=== PATIENT | male | born 1985 | race African-American/Black ===

== ENCOUNTER → 2020-11-09 | Emergency (ER) | payer OTHER ==
[~2020-11-09] VITALS: Ht 182.9 cm; Wt 86.2 kg
[~2020-11-09] MED LIST: ACETAMINOPHEN-1 EAC1 ORAL; ANUSOL-HC30 GM RC; BACTRIM-DS1 EA ORAL; CEPHALEXIN500 MG ORAL; COLACE100 MG ORAL; PREDNISONE20 MG ORAL
--- NOTE | 2020-11-09 17:30 | NUR ---
ED Nurse Note: Pt walked into ED for anal pain 10/10 for 2 days. Pt is alert and orientedx4, ambulatory. Pt denies seeing any discharge or bleedign from rectum. Pt is alert and orientedx4, ambulatory. He is set up on monitor. Pt has been seen by SONY.
[2020-11-09 17:40] VITALS: BP 124/79
--- NOTE | 2020-11-09 17:55 | Emergency Room Report ---
History of Present Illness General Chief Complaint: Pain Source: Patient Present Illness HPI 35-year-old male with no significant past medical history here complaining of 3 days of mass in anal area at the 10 or 10 pain. Denies any bleeding, pus drainage. Denies receiving anal intercourse. Denies fever and chills, straining. Reports that he has been on the constipated side the past few days. Denies any blood in stool. Denies nausea vomiting, abdominal pain, chest pain shortness of breath. Urinary symptoms, scrotal pain. Up-to-date with Tdap. COVID-19 Screening Contact w/high risk pt: No Experienced COVID-19 symptoms?: No COVID-19 Testing performed PAVER: No Patient History Past Medical History: see triage record Past Surgical History: none Pertinent Family History: none Reviewed Nursing Documentation: PMH: Agreed; PSxH: Agreed Nursing Documentation-PMH Past Medical History: No Stated History Review of Systems All Other Systems: negative except mentioned in HPI Physical Exam Vital Signs Date Time Temp Pulse Resp B/P (MAP) Pulse Ox O2 Delivery O2 Flow Rate FiO2 11/09/20 17:11 98.2 80 17 125/77 (93) 95 Room Air Sp02 EP Interpretation: reviewed, normal General Appearance: no apparent distress, alert, GCS 15, non-toxic Head: normocephalic, atraumatic Eyes: bilateral eye normal inspection, bilateral eye PERRL ENT: hearing grossly normal, no angioedema, normal voice Neck: supple Respiratory: no respiratory distress, no retraction, no accessory muscle use Cardiovascular #1: regular rate, rhythm Gastrointestinal: normal bowel sounds, non tender, soft, non-distended, no guar ding, no rebound Rectal: other - infected external hemorrhoid Genitourinary: no CVA tenderness Musculoskeletal: back normal Neurologic: alert, motor strength/tone normal, oriented x3, sensory intact, responsive, speech normal Psychiatric: judgement/insight normal, memory normal, mood/affect normal, no suicidal/homicidal ideation Skin: no rash Lymphatic: no adenopathy Medical Decision Making PA Attestation All diagnosis and treatment plans were discussed and reviewed by my supervising physician Dr. Garcia Diagnostic Impression: Primary Impression: Acute hemorrhoid Additional Impression: Acute anal fissure ER Course 35-year-old male with no significant past medical history here complaining of 3 days of mass in anal area at the 10 or 10 pain. Denies any bleeding, pus drainage. Denies receiving anal intercourse. Denies fever and chills, straining. Reports that he has been on the constipated side the past few days. Denies any blood in stool. Denies nausea vomiting, abdominal pain, chest pain shortness of breath. Urinary symptoms, scrotal pain. Up-to-date with Tdap. Ddx considered but are not limited to : Cellulitis, hemorrhoid, perianal abscess, prognosis, thrombosed hemorrhoid, infected hemorrhoid, superficial infection, abscess Vital signs: are WNL, pt. is afebrile H&PE are most consistent with: Anal fissure, infected hemorrhoid external ORDERS: Anusol cream, prednisone, Bactrim DS, Keflex, Tylenol 3, Colace ED INTERVENTIONS: None required at this time. DISCHARGE: At this time pt. is stable for d/c to home. Will provide printed patient care instructions, and any necessary prescriptions. Care plan and follow up instructions have been discussed with the patient prior to discharge. Take medication as directed, follow primary care provider, if worsening symptoms return to the emergency room Last Vital Signs Date Time Temp Pulse Resp B/P (MAP) Pulse Ox O2 Delivery O2 Flow Rate FiO2 11/09/20 17:11 98.2 80 17 125/77 (93) 95 Room Air Disposition: HOME, SELF-CARE Condition: Stable Scripts Docusate Sodium* (COLACE*) 100 Mg Capsule 100 MG ORAL DAILY, #14 CAP Prov: EleazarmogBarak martinez 11/09/20 Hydrocortisone Hc 2.5% Cream (ANUSOL-HC 2.5% CREAM) Y Cr 2 GM RC TID, #28 GM Prov: EleazarmogBarak martinez 11/09/20 Prednisone* (PREDNISONE*) 20 Mg Tablet 40 MG ORAL DAILY for 5 Days, #10 TAB Prov: Barak Sanchez 11/09/20 Acetaminophen With Codeine (T#3) (TYLENOL #3 TAB*) Y Tab 1 TAB ORAL Q8HR PRN for For Pain for 3 Days, #10 TAB Prov: EleazarmogBarak martinez 11/09/20 Cephalexin* (KEFLEX*) 500 Mg Capsule 500 MG ORAL EVERY 6 HOURS for 7 Days, #28 CAP Prov: Barak Sanchez 11/09/20 Trimethoprim/Sulfamethoxazole (Bactrim Ds Tablet) 1 Each Tablet 1 TAB ORAL TWICE A DAY for 7 Days, #14 TAB Prov: Barak Sanchez 11/09/20 Referrals: NOT CHOSEN IPA/,REFERRING (PCP) Patient Instructions: Anal Fissure, Adult, [id number], Hemorrhoids, [id number] Additional Instructions: Take medication as directed, follow-up with your primary care provider, if worsening symptoms return to the emergency room Barak Sanchez Nov 09, 2020 17:55
== END | disposition home or self-care (01) ==
LOC: EMR 17:00
DX: K64.9 Unspecified hemorrhoids (principal); K60.0 Acute anal fissure
CPT/HCPCS: 99282